=== PATIENT | female | born 1995 ===

== ENCOUNTER 2019-07-29 11:19 | Emergency (ER) | payer OTHER ==
--- NOTE | 2019-07-29 13:35 | UC ---
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 She was offered interpretation services and she declined and her stated that he would interpret for her. She had a baby in May 2019 which was a normal vaginal delivery without complications in the mother or the baby. She states since then she occasionally has bright blood with her stools. She states her stools are quite hard. She also feels a lump near her rectum which she would like checked. She also states over the past few days she's had burning on urination sometimes but not every time. She denies any abnormal vaginal discharge. - History Of Current Complaint Chief Complaint: UCGeneralIllness Stated Complaint: PERSONAL Time Seen by Provider: 07/29/19 12:33 Hx Obtained From: Patient ?: No Onset/Duration: Gradual Onset, Lasting Weeks Timing: Intermittent - The primary red blood with stools her only when she has a bowel movement and it's usually hard and constipated. Severity Initially: Mild Severity Currently: Mild Pain Intensity: 5 Character: Burning Aggravating Factor(s): Urination - Over the past few days occasionally she will have a little burning with urination but not every time. Associated Signs And Symptoms: Negative: Vaginal Bleeding/Discharge, Vaginal Discharge - Allergies/Home Medications Allergies/Adverse Reactions: Allergies Allergy/AdvReac Type Severity Reaction Status Date / Time ibuprofen Allergy Rash Verified 07/29/19 12:34 Home Medications: Home Medications NK [No Home Medications Reported] 07/29/19 [History Confirmed 07/29/19] PMH/Surg Hx/FS Hx/Imm Hx Previously Healthy: Yes - Surgical History Surgical History: Yes Surgery Procedure, Year, and Place: appendix - Family History Known Family History: Positive: Non-Contributory - Social History Lives: With Family Alcohol Use: None Substance Use Type: None Smoking Status (MU): Never Smoked Tobacco Review of Systems All Other Systems Reviewed And Are Negative: Yes Skin: Positive: Other - Patient states she feels a small lump near her rectum and she was worried about hemorrhoids. Gastrointestinal: Positive: Other - Patient states since she had the baby in May when she has a constipated stool she'll have some bright red blood but the stool itself is normal brown. Genitourinary: Positive: Dysuria Is Patient Immunocompromised?: No Physical Exam Triage Information Reviewed: Yes Appearance: Well-Appearing, No Pain Distress, Well-Nourished Vital Signs: Initial Vital Signs Temp 98.2 F 07/29/19 12:35 Pulse 64 07/29/19 12:35 Resp 16 07/29/19 12:35 BP 101/66 07/29/19 12:35 Pulse Ox 100 07/29/19 12:35 Vital Signs Reviewed: Yes Respiratory: Positive: Lungs clear, Normal breath sounds, No respiratory distress, No accessory muscle use Cardiovascular: Positive: RRR, No Murmur, Pulses Normal, Brisk Capillary Refill Abdomen Description: Positive: Nontender, No Organomegaly, Soft. Negative: CVA Tenderness (R), CVA Tenderness (L), Distended, Guarding, Hepatomegaly, Splenomegaly Bowel Sounds: Positive: Present Musculoskeletal Exam: Normal Neurological Exam: Normal Psychological Exam: Normal Skin: Positive: Other - The patient has a very small skin tag near the rectum. There are no hemorrhoids visualized. Complaint Female Dx - Course Course Of Treatment: Urinalysis showed a trace of leukocytes and some blood. I am going to send that for culture and we will notify her if it comes back positive for urinary tract infection. I advised the patient to purchase an [id number] stool softener and take that to soften her stools and avoid constipation. She is to increase fluids. They're to follow-up with her primary care provider if no improvement in 5-7 days. She and her are agreeable to this plan of action. - Differential Dx/Diagnosis Provider Diagnosis: Skin tag of anus, Dysuria Discharge ED - Sign-Out/Discharge Documenting (check all that apply): Patient Departure All imaging exams completed and their final reports reviewed: No Studies - Discharge Plan Condition: Good Disposition: HOME Patient Education Materials: Dysuria (ED) Print Language: KAZAKH Referrals: No Primary Care Phys,NOPCP [Primary Care Provider] - Additional Instructions: Increase fluids, take an [id number] stool softener as directed. Follow- up with your primary care provider in 5-7 days if continued symptoms. We will call you if the urine culture comes back positive for a urinary tract infection. - Billing Disposition and Condition Condition: GOOD Disposition: Home
== END 2019-07-29 13:42 | disposition home or self-care (01) ==
LOC: UCCORT 11:19
DX: K64.4 Residual hemorrhoidal skin tags (principal); R30.0 Dysuria; R82.998 Other abnormal findings in urine; R31.9 Hematuria, unspecified; Z88.6 Allergy status to analgesic agent
CPT/HCPCS: 81003; 84702; 87086; 99201; G0463